=== PATIENT | female | born 1950 | race Caucasian/White ===

== ENCOUNTER 2024-02-17 13:52 | Inpatient (IN) | payer OTHER, SELFPAY ==
[2024-02-16] VITALS (8 sets, daily range): BP systolic 150–225; BP diastolic 81–116; BMI 19.8
--- NOTE | 2024-02-16 17:44 | ED.GENMED ---
History of Present Illness
General
Chief Complaint: Numbness
Source: patient and other (Friend)
Exam Limitations: none
Time Seen by Provider: 02/16/24 17:32
Nursing documentation reviewed up to this point in time: agreed with
Travel History
Have you had any contact with someone who has COVID-19?: No
Do you have any symptoms of coronavirus? Fever > 100 degrees, chills, cough, shortness of breath, sore throat, loss of taste or smell, muscle aches, or headache?: No
History of Present Illness
History of Present Illness:
73-year-old female presents emerged part complaining of episodes of numbness in her left arm and left face. She denies any chest pain.
Past History
Past History
ED Past Medical History: GERD, HTN and Hypercholesterolemia
ED Past Surgical History: and Gynecological (d and c)
Social History
Tobacco: Non-smoker
Alcohol: None
Drug: None
Review of Systems
Review of Systems
Allergies reviewed?: Yes
All Other Systems: Not applicable
Constitutional: Reports no symptoms
EENT: Reports no symptoms
Respiratory: Reports no symptoms
Cardiac: Reports no symptoms
ABD/GI: Reports no symptoms
: Reports no symptoms
Musculoskeletal: Reports no symptoms
Skin: Reports no symptoms
Neurological: Reports numbness; Denies weakness
Endocrine: Reports no symptoms
Hematologic/Lymphatic: Reports no symptoms
Psychiatric: Reports no symptoms
Phy Exam
Physical Exam
Physical Exam:
Physical Exam
General: no apparent distress, not acutely ill
Neck: supple. no meningeal signs. normal posterior pharynx
Heart: s1/s2 regular rate and rhythm, no murmur. equal radial
pulses.
HEENT: Pupils equal round reactive to light, EOMI
Lungs: no acute respiratory distress. clear bilaterally
Abdomen: normal bowel sounds. not tender. no CVAT
Neuro: alert and oriented. no focal neurological deficits cranial nerves II through XII intact
Skin: no rash
Psychiatric: well kept. interactive and cooperative
Extremities: no edema. no calf tenderness. negative homans. good distal pulses
Course
Orders/Labs/Results
Orders:
Orders
02/16/24 17:19
Electrocardiogram (*1) Urgent
Reason for Study: Hypertension, Benign
EKG- Treatment ONCE
02/16/24 17:42
CT Head W/o Iv Contrast Urgent
Comment:
Reason For Exam: left facial and arm numbness, hypertension
Cardiac Monitoring- Treatment ONCE
IV Insert/Care/Rem.- Treatment PRN
Pulse Ox/cont/shift [RESP] Stat
Quantity: 1
02/16/24 17:58
Complete Blood Count/With Diff Urgent
Comprehensive Metabolic Panel Urgent
PTT Urgent
Prothrombin Time Urgent
Troponin I Urgent
02/16/24 19:56
HydrALAZINE [Apresoline] 10 mg IV NOW STA
02/16/24 20:00
Aspirin 325 mg PO NOW STA
Abnormal Lab Results
02/16/24
17:58
MCH 32.1 H pg
(27.0-31.0)
Absolute Monos (auto) 0.8 H 10^3/uL
(0.1-0.6)
Neutrophils % 42.1 L %
(42.2-75.2)
Monocytes % 11.2 H %
(1.7-9.3)
Sodium 129 L mmol/L
(135-145)
Chloride 93 L mmol/L
(98-107)
Glucose 107 H mg/dl
(70-99)
Calcium 10.4 H mg/dl
(8.4-10.2)
02/16/24 17:58
02/16/24 17:58
Vital Signs
Initial and Last Documented VS:
Initial Vital Signs
Temp Pulse Resp BP Pulse Ox
98.1 F 73 16 225/113 99
02/16/24 17:11 02/16/24 17:11 02/16/24 17:11 02/16/24 17:11 02/16/24 17:11
Last Documented Vital Signs
Temp Pulse Resp BP Pulse Ox
98.1 F 66 14 194/84 97
02/16/24 17:11 02/16/24 18:00 02/16/24 18:00 02/16/24 18:00 02/16/24 18:00
MDM/Problems Addressed
Differential Diagnosis Includes:
Intracranial hemorrhage, CVA, TIA, hypertensive urgency
MDM/Problems Addressed:
73-year-old female with hypertensive urgency, TIA. IV hydralazine ordered. Admit to hospitalist.
Chronic conditions affecting care: HTN
Acute Exacerbation and/or Progression of Chronic Illness: HTN
*Radiology
Radiology exam reviewed: radiology read reviewed (CT head no acute finding)
*Pulse Oximetry
Patient hypoxic: no
*EKG
Interpreted by ED Provider?: Yes
EKG Intrepretation Date: 02/16/24
EKG Intrepretation Time: 17:22
Interpretation: normal
Comparison EKG: no comparison EKG present
Heart Rate: 71
Rate: normal
Rhythm: sinus
[place]: normal axis
Interval: normal interval
QRS Pattern: normal QRS
Ischemia: no ischemia
*Skidder Lever Operator Interpretation
Rate: normal
Interpretation: normal
Heart Rate: 75
Rhythm: sinus
*Critical Care Note
Total Time (30-74mins, 75-104mins- exclusive of procedures): 30
comment:
Critical care statement: A total of 30 minutes of critical care time was provided for this patient. This includes management of unstable vital signs, evaluation of the patient at bedside, reviewing the patient's pertinent medical records, discussion
with consultants, review of old EKGs and review of pertinent medical records. This time with separate from time utilized to perform the aforementioned documented procedures
Data Reviewed
Review of Other/Old Records Reveals: Labs
Prescriptions/Medications Considered But Not Given:
TNK not indicated
Patient Management
Social determinants of health affecting care: Living situation
Discussion with other providers: Hospitalist
Escalation/DeEscalation of care consider admission/obs:
Admit indicated
ED Attending Note
-
Portions of this chart may have been created with voice recognition software.� Occasional wrong word or��sound alike� substitutions may have occurred due to the inherent limitations of voice recognition software.
Discharge Plan
Departure
Patient Disposition: Admit
Date of Disposition: 02/16/24
Time of Disposition: 19:57
Admit to: IMU
Presentation/result/management discussed w/ accepting MD/DO: Hospitalist
Patient with high blood pressure during this ER visit?: Yes
Condition: Good
Discharge Problem:
TIA (transient ischemic attack), Hypertensive urgency
Prescriptions:
No Action
losartan 50 mg Tablet
100 mg PO DAILY
Patient Comments:
02/16/2024, per pt., as of Wednesday (02/12/2024) dose was changed to two tablets daily.
timolol 0.5 % Drops
1 drp BOTH EYES DAILY
omeprazole 20 mg Capsule,Delayed Release(Dr/Ec)
20 mg PO DAILY
calcium carbonate-vitamin D3 [Calcium 600 with Vitamin D3] 600 mg-12.5 mcg (500 unit) Capsule
2 cap PO DAILY PRN (Reason: supplement)
Otezla 30 mg Tablet
30 mg PO BID
Referrals:
Soledad Davis CRNP [Family Provider] -
Interventions
Interventions:
*Risk Screen - Suicide Last Done: 02/16/24 17:42
*General Assessment Last Done: 02/16/24 17:42
*Neglect/Abuse Screening Last Done: 02/16/24 17:42
*ED COVID-19 Vaccine History Last Done: 02/16/24 17:11
ED- Neurological Assessment Last Done: 02/16/24 17:42
Discharge Date and Time
Print Language: IRANIAN
[2024-02-16 18:13] LABS: % Basophils 0.8 % (0-2); % Eosinophils 2.7 % (0-6); % Immature Granulocytes 0.3 % (0-0.5); % Lymphocytes 42.9 % (20.5-51.1); % Monocytes 11.2 % (1.7-9.3); % Neutrophils 42.1 % (42.2-75.2); Absolute Basophils 0.1 10^3/uL (0-0.2); Absolute Eosinophils 0.2 10^3/uL (0-0.7); Absolute Lymphocytes 3.2 10^3/uL (1.2-3.4); Absolute Monocytes 0.8 10^3/uL (0.1-0.6); Absolute Neutrophils 3.2 10^3/uL (1.4-6.5); Hematocrit 41.4 % (37.0-47.0); Mean Corp Hgb Conc. 36.2 g/dL (33.0-37.0); Mean Corpuscular Hgb 32.1 pg (27.0-31.0); Mean Corpuscular Volume 88.7 fL (81.0-99.0); Mean Platelet Volume 8.9 fL (7.4-10.4); Nucleated Red Blood Cells % 0 %; Platelet Count 321 10^3/uL (130-400); Red Blood Cell Count 4.67 10^6/uL (4.20-5.40); Red Cell Dist. Width 11.6 % (11.5-14.5); White Blood Cell Count 7.5 10^3/uL (4.8-10.8)
[2024-02-16 18:23] LABS: INR 0.96; PT 12.8 Sec (11.4-14.6)
[2024-02-16 18:24] LABS: ALT (SGPT) 20 U/L (0-35); APTT 28.9 Sec (23.4-35.0); AST (SGOT) 28 U/L (14-36); Albumin 4.7 g/dl (3.5-5.0); Alkaline Phosphatase 125 U/L (38-126); Blood Urea Nitrogen 13 mg/dl (7-17); Calcium 10.4 mg/dl (8.4-10.2); Carbon Dioxide 25 mmol/L (22-30); Chloride 93 mmol/L (98-107); Glucose 107 mg/dl (70-99); Potassium 4.3 mmol/L (3.5-5.1); Sodium 129 mmol/L (135-145); Total Bilirubin 0.9 mg/dl (0.2-1.3); Total Protein 7.9 g/dl (6.3-8.2); eGFR > 60.00
[2024-02-16 18:36] LABS: Troponin I < 0.012 ng/ml
--- NOTE | 2024-02-16 20:56 | HPS.HSE ---
Family Physician
-
Family Physician: CARIN Michelle
Chief Complaint
-
Left face and arm numbness
History of Present Illness
Patient is a 73 y/o female past medical history of hypertension, and psoriasis who presents with numbness of left face and arm. Patient reports she expereiced two episdoe on Wednesday, one episode yesterday, and an episode this morning. She reports
symptoms last just a few minutes and then resolve. She reports her losartan dose was increased 5 days ago as her blood pressure overall has been running higher. She denies any symptoms at the present time. She denies any headache or vision
changes associated with the event. She denies prior history of TIA/CVA.
Medical History
Past Medical History
Past Medical History: Reports Other
Additional Past Medical History:
Hypertension
Hyperlipidemia
Psoriasis
GERD
Past Surgical History: Reports Other
Additional Past Surgical History:
Sinus Surgery
Social History
Tobacco: Former Smoker (Quit over 50 years)
Alcohol: Occasional (1-2 drinks about 5 days a week)
Family History
Family History: Other (Father: Early onset Alzheimer's; Brother: CVA in his 40s, A-fib)
Allergies / Home Medications
Allergies reflects when Allergies were last updated in [employer].
Home Medications with original date entered in [employer]
Allergy/Medication List:
Allergies
Allergy/AdvReac Type Severity Reaction Status Date / Time
amlodipine Allergy Mild Rash Verified 02/16/24 17:10
ampicillin Allergy Mild Rash Verified 02/16/24 17:10
hydrocodone Allergy Mild Rash Verified 02/16/24 17:10
tetracycline Allergy Mild Rash Verified 02/16/24 17:10
Home Medications
apremilast 30 mg tablet (Otezla) 30 mg PO BID 02/16/24
calcium carbonate 600 mg-vitamin D3 12.5 mcg (500 unit) capsule (Calcium 600 with Vitamin D3) 2 cap PO DAILY PRN supplement 02/16/24
losartan 50 mg tablet 100 mg PO DAILY 02/16/24
omeprazole 20 mg capsule,delayed release 20 mg PO DAILY 02/16/24
timolol 0.5 % eye drops 1 drp BOTH EYES DAILY 02/16/24
Review of Systems
-
A 12 point ROS was completed and negative except as noted: Yes
Constitutional: Denies Fever or Chills
Respiratory: Denies Cough or Trouble Breathing
Cardiac: Denies Chest Pain or Palpitations
Abdomen/GI: Denies Abdominal Pain, Nausea, Vomiting or Diarrhea
Neurological: Reports See HPI
Physical Exam
Vital Signs
Vital Signs
Temp Pulse Resp BP Pulse Ox
98.1 F 66 14 194/84 97
02/16/24 17:11 02/16/24 18:00 02/16/24 18:00 02/16/24 18:00 02/16/24 18:00
Physical Exam
General: Comfortable and Conversant
HEENT: Anicteric and Moist mucous membranes
Respiratory: Clear and Non Labored Respirations
Cardiac: S1/S2 and Regular Rhythm
GI: Soft and Non Tender
Rectal: Deferred by Provider
Musculoskeletal: No Clubbing, No Cyanosis and No Edema
Skin: Warm and Dry
Neuro: Awake, Alert, Oriented and Nonfocal/grossly intact
Psych: Calm
Laboratory Results
-
02/16/24 17:58
02/16/24 17:58
Laboratory Results
PT 12.8 Sec (11.4-14.6) 02/16/24 17:58
INR 0.96 02/16/24 17:58
APTT 28.9 Sec (23.4-35.0) 02/16/24 17:58
Total Bilirubin 0.9 mg/dl (0.2-1.3) 02/16/24 17:58
AST 28 U/L (14-36) 02/16/24 17:58
ALT 20 U/L (0-35) 02/16/24 17:58
Alkaline Phosphatase 125 U/L (38-126) 02/16/24 17:58
Troponin I < 0.012 ng/ml 02/16/24 17:58
Data Reviewed
-
CT Scan: Report Reviewed by me
Lab Data: Labs Reviewed by me
Impression/Plan
-
Transient Left Face and Arm Numbness, possibly related to elevated blood pressure vs TIA/CVA
-Consult Neurology
-Check Brain MRI
-Continue low dose aspirin
Uncontrolled Hypertension - BP is quite variable
-Continue losartan 100mg Daily as this was recently increased
-Add hydralazine prn
Hyponatremia
-Check urine sodium and urine osmo
-Check TSH and Cortisol
-Continue fluid restriction
Psoriasis
-Patient maintained on Otezla as outpatient
GERD
-Continue Protonix
DVT proph: SCDs
Code Status: Full Code
[2024-02-16] MEDS: ASPIRIN 325 MG PO (21:07)
[2024-02-16 21:36] LABS: Osmolality Serum 276 mOsm/kg (275-300)
[2024-02-16 21:51] LABS: TSH Reflex To Free T4 2.01 uIU/ml (0.47-4.68)
--- NOTE | 2024-02-16 23:14 | W.PN.UPDATE ---
Update Note
Progress Note Update
Patent seen and examined independently. Agree with findings and plan as set forth in the H&P as documented by Eli Lisa PA-C.
Patient is a 73y F with PMH significant for HTN, dyslipidemia and psoriasis who presents to ED c.o multiple episodes of brief, intermittent L sided numbness and tingling. Patient reports about 4 episodes over the past 3 days. Symptoms include
numbness and tingling in the L hand and arm, L face and a strange sensation with swallowing. Each episode lasted minutes before resolving spontaneously. Most episodes occurred in the AM. Each episode consisted of identical symptoms.
Patient denies any prior h/o CVA / TIA. She has chronically labile BP that has been difficult to control. She notes that her losartan dose was increased about one week ago.
Ass:
Transient L Sided Paresthesias
Labile / Uncontrolled Hypertension
Hyponatremia
Dyslipidemia
Psoriasis
Plan:
Observe overnight for further evaluation and treatment.
Monitor for any new / recurrent symptoms.
Allow permissive hypertension for now.
Adjust meds during stay for better control / goal of normotension at discharge.
Continue low dose ASA.
Neuro evaluation.
MRI / MRA brain in the AM.
Fluid restriction. Check urine lytes.
[2024-02-17] VITALS (12 sets, daily range): BP systolic 129–187; BP diastolic 67–99; BMI 20.6
--- NOTE | 2024-02-17 01:38 | EDRN ---
the pt is requesting her home prescribed meds: Omeprazole, Otezla, and Timolol eye drops be ordered so she can get them starting later this morning. the house provider CARIN Coelho was notified of the pts request via [employer].
--- NOTE | 2024-02-17 03:25 | PTCARENOTE ---
@0315,Received pt from ED,via wheel chair with tele monitor on.Gait stable and oriented x3.Pt denies pain.
[2024-02-17 05:46] LABS: Urine Albumin Negative (Neg - Trace); Urine Bilirubin Negative (Negative); Urine Character Clear (Clear); Urine Color Yellow; Urine Glucose Negative (Negative); Urine Ketone 1+ (Negative); Urine Leukocyte Negative (Negative); Urine Nitrite Negative (Negative); Urine Occult Blood Negative (Negative); Urine Urobilinogen Negative (Neg - 1+); Urine pH 6.5 (5.0-9.0)
[2024-02-17 05:59] LABS: Urine Sodium 89 mmol/L (30-90)
[2024-02-17 06:04] LABS: Osmolality Urine 338 mOsm/kg (300-900)
[2024-02-17 06:22] LABS: Hematocrit 39.6 % (37.0-47.0); Mean Corp Hgb Conc. 35.4 g/dL (33.0-37.0); Mean Corpuscular Hgb 31.7 pg (27.0-31.0); Mean Corpuscular Volume 89.8 fL (81.0-99.0); Mean Platelet Volume 9.2 fL (7.4-10.4); Platelet Count 283 10^3/uL (130-400); Red Blood Cell Count 4.41 10^6/uL (4.20-5.40); Red Cell Dist. Width 11.4 % (11.5-14.5); White Blood Cell Count 6.2 10^3/uL (4.8-10.8)
[2024-02-17 06:32] LABS: Blood Urea Nitrogen 12 mg/dl (7-17); Calcium 9.8 mg/dl (8.4-10.2); Carbon Dioxide 25 mmol/L (22-30); Chloride 92 mmol/L (98-107); Estimated Creatinine Clearance 70 ml/min; Glucose 146 mg/dl (70-99); HDL Cholesterol 88 mg/dl; LDL Cholesterol, Calculated 144 mg/dl; Sodium 127 mmol/L (135-145); Total Cholesterol 252 mg/dl (50-199); Triglyceride 102 mg/dl (10-149); Very Low Density Lipoprotein 20 mg/dl (0-30); eGFR > 60.00
[2024-02-17 07:02] LABS: Cortisol, Random 10.1 ug/dl
--- NOTE | 2024-02-17 07:06 | CON.NEURO4 ---
Addendum entered and electronically signed by Jakob Waters MD 02/17/24 12:04:
While on DAPT therapy do not use Omeprazole and instead use Pantoprazole and Omeprazole known to reduce effectiveness of Clopidogrel due to effects on CYP metabolism and conversion of clopidogrel to its active metabolite/drug.
Original Note:
Consultation - Neurology 4
-
CONSULTING PHYSICIAN: Nita Waters
REFERRING PHYSICIAN: Hospitalist
DICTATED BY: Nita Waters
DATE/TIME OF REQUEST: 02/17/24
DATE/TIME OF CONSULTATION: 02/17/24
Reason for Consultation: TIA, facial and left arm sensory symptoms repeated episodes
History of Present Illness:
Patient is a 73 year old woman with history of hypertension presenting to hospital with 3 episodes of left face and left arm abnormal paresthesia happening approximately 4 times since first starting on Wednesday. No recent head or neck trauma, no
unusual head or neck pain. She was in her normal state of health Wednesday and in the morning had a couple of minutes of left face and arm paresthesia lasting around 3 minutes, resolved and then happened in a similar manner in the afternoon and
resolved again. Similar episodes happened on Wednesday and Wednesday of this week, still resolving. She had not had any episodes like this previous to Wednesday. No symptoms of unilateral vision change or blindness, dysarthria, speech difficulty,
unilateral weakness, vertigo, or walking difficulties. Her blood pressure was elevated in the ER to the low 200's systolic. Patient reports being on medication for blood pressure for about 5 years. She says blood pressure is a bit labile,
sometimes normal and then randomly high the next day. She had recent increase in Losartan to 100 mg daily last Wednesday by her PCP. No issues with stroke, TIA, or heart issues ever in her life. Exercises regularly. Doesn't take any antiplatelet at
baseline. Had had some gastric ulcers and need for esophageal dilation with EGD a few years back, no instances of any GI bleeding in the past 5 years. Takes Omeprazole as daily medication. Noted to have hyponatremia of 127. No recent vomiting,
does have some frequent loose stools. PO intake has been good.
Past Medical History: Hypertension, diverticulosis, previous gastric ulcer, psoriasis
Surgical History: 2 C section, one D & C, EGD
Family History: Brother with stroke in his mid 40's and atrial fibrillation, father with an early onset dementia in his 50's, history of late onset dementia in her mother and multiple siblings on her mother's side
Social History: Retired oncology nurse, she was raised in the area and for a long time lived and worked in [place], no tobacco, social rare alcohol, no recreational drugs
Review of Symptoms:
Patient denies any fever, headache, chest pain, shortness of breath, GI or symptoms.
Physical Exam:
Well appearing middle aged woman appears younger than her stated age, no head or neck trauma, eyes clear, orpharynx clear, neck full range of motion no masses, heart rate regular, breathing unlabored, abdomen soft non tender, no lower extremity edema
Neurologic Examination:
The patient is awake, alert and oriented x 3. Sheis able to follow commands and answer questions appropriately. There is no aphasia or dysarthria. On cranial nerve assessment, pupils are 3 mm bilateral, round and reactive to light and
accommodation. Visual vang are full. Extraocular movements are intact. Facial sensations are intact and bilaterally symmetrical, there is no facial asymmetry. Hearing is intact bilaterally to normal conversation volume. Tongue palate and uvula
are midline. Sternocleidomastoid strengths are full bilaterally. Motor strengths are 5/5 bilateral upper and lower extremities on medical research [place] scale. There is no drift or involuntary movement noted. Deep tendon reflexes are 2+ bilateral
upper and lower extremities and Babinski is absent bilaterally. Sensations of pain, touch, temperature and vibration are intact and bilaterally symmetrical. There was no extinction noted on double simultaneous stimulation. Coordination is intact by
finger to nose bilaterally.
Neuro Imaging: CT head non contrast no abnormalities noted
Impressions
1. High suspicion for TIA or minor stroke with 3-4 episodes of left face and arm paresthesia. History of hypertension. Less likely this is a cervical spine issue which can rarely produce sensory symptoms on the face.
2. Essential hypertension
3. Psoriasis
Patient has the following risk factors for their symptoms: Hypertension, family history of stroke
Recommendations:
1. Add clopidogrel 300 mg once now to aspirin. Plan for DAPT tentatively for 3 weeks total
2. Pursue goal normotension with resolved neurologic symptoms.
3. Patient had unremarkable TTE last year, not going to recommend a repeated study. Monitor on cardiac telemetry
4. Check MRI of the brain and MRA of the head without contrast, MRA of the neck with contrast
5. NIH and neurologic checks
6. Stroke educational materials
7. Would start Atorvastatin 40 mg daily given LDL 144
8. Workup of hyponatremia sodium 127, follow sodium
9. Goal normoglycemia, pending HbA1c
Will follow
Discussed patient care with: Patient
[2024-02-17] MEDS: LOW STRENGTH ASPIRIN 81 MG PO (07:49)
[2024-02-17] MEDS: COZAAR 100 MG PO (07:49)
[2024-02-17 08:44] LABS: Glycohemoglobin (HgbA1c) 6.1 % (4.0-5.6)
[2024-02-17] MEDS: PLAVIX 300 MG PO (08:45)
--- NOTE | 2024-02-17 09:57 | W.PN.HOSP.TC ---
Today's Communication/Plan
-
see outlined plan
Assessment / Plan
Assessment / Plan
Assessment:
TIA
- 3-4 episodes recently of L arm/face paresthesia
- check MRI brain, MRA Head/neck
- follow NIH scores
- ASA/Plavix x 3 weeks
- BP goal normotension
- LDL 144 - start Statin
- A1c 6.1% - outpatient PCP f/u and encourage weight loss
- recent normal Echo 1 year ago, no indication for repeat
Uncontrolled Essential HTN
- continue Losartan 100mg daily - assess repeat BP around noon
- may need low dose 2nd agent, favor BB. No diuretics due to hyponatremia
Hyponatremia, euvolemic
- TSH/Cortisol ok
- continue OFR 1200 cc
Psoriasis
- patient maintained on Otezla as outpatient
GERD
- continue Protonix
DVT ppx: SCDs
Code Status: Full Code
Anticipated Discharge: Within 24 hours
Subjective/Interval History
-
Date of Service: February 17, 2024
no LUE symptoms today
Objective Data
-
Labs:
Laboratory Results
02/17/24
05:47
WBC 6.2
Hgb 14.0
Hct 39.6
Plt Count 283
Sodium 127 L
Potassium 4.0
Chloride 92 L
Carbon Dioxide 25
BUN 12
Creatinine 0.6
Glucose 146 H
Calcium 9.8
Vital Signs:
Vital Signs
Temp Pulse Resp BP Pulse Ox
97.6 F 80 18 186/99 99
02/17/24 07:00 02/17/24 07:49 02/17/24 07:00 02/17/24 07:49 02/17/24 07:00
I&O
0302/17/24 02/18/24
06:59 06:59 06:59
Intake Total 480 / 480
Output Total 200 / 200
Balance 280 / 280
Physical Exam
-
General: No Apparent Distress
HEENT: Normocephalic and Atraumatic
Respiratory: Negative Wheezes or Rales
Cardiac: Regular Rhythm and S1/S2
GI: Soft and Nontender
Genito-urinary: No Costovertebral Tender
Musculoskeletal: No Edema
Neuro: AO x 3
Hematologic / Lymphatic: No Lymphadenopathy
Psych: Calm
Data Reviewed
-
Total Time Spent with Patient (in minutes): 41
Labs: Labs Reviewed by me
[2024-02-17] MEDS: LASIX 20 MG PO (12:07)
--- NOTE | 2024-02-17 12:23 | PTOTSP ---
Orders received. Chart reviewed. Presenting to hospital with 3 episodes of left face and left arm abnormal paresthesia happening approximately 4 times since first starting on Wednesday. Pt reports all symptoms have resolved. MRI brain is negative for
acute infarct. Pt reports she is independent with her basic self care and is ambulating to/from bathroom independently without AD. Nursing is in agreement. No skilled OT indicated at this time. Please reconsult if medical status changes and OT
consult is warranted.
--- NOTE | 2024-02-17 12:46 | CM ---
Spoke with pt at bedside
Pt lives alone in 1 story home with basement
Independent, drives, retired
Denies DME in home
Denies past SNF/HH
Has ride at d/c
PCP - Mari Davis PRACTICAL NURSE CLINICAL COORDINATOR
Pharm - [facility]
Pending PT/OT recs
Plan - anticipate home no needs
[2024-02-18 04:00] VITALS: BP 154/90
[2024-02-18 05:50] VITALS: BMI 20.2
[2024-02-18 06:44] LABS: Blood Urea Nitrogen 17 mg/dl (7-17); Calcium 9.8 mg/dl (8.4-10.2); Carbon Dioxide 29 mmol/L (22-30); Chloride 93 mmol/L (98-107); Estimated Creatinine Clearance 52 ml/min; Glucose 100 mg/dl (70-99); Sodium 130 mmol/L (135-145); eGFR > 60.00
[2024-02-18 07:33] VITALS: BP 121/77
--- NOTE | 2024-02-18 07:41 | W.PN.NEURO.1 ---
Today's Communication / Plan
-
-Not feeling patient would need inpatient C spine MRI given sensory symptoms only, no weakness, can consider as outpatient but not going to change therapies
-Goal normotension, NIH and neurologic checks
-DAPT therapy 21 days then aspirin afterwards, use Pantoprazole while on Clopidogrel due to interaction, can go back to omeprazole after stopping clopidogrel
-Was not able to tolerate crestor as outpatient, declines using Atorvastatin, as outpatient discuss Zetia, she had asked about Bempedoic acid but I am not familiar with the medication would not pursue at this time
-No barriers to discharge from my standpoint, defer to hospitalist for sodium management
-Neurology follow up in 4-6 weeks
Will sign off call with questions and concerns
Neuro Assessment/Plan
Assessment
73 year old woman presenting with 3-4 episodes of left face and arm paresthesia, 2 on Wednesday, 1 on Wednesday, 1 on Wednesday
One episode of similar symptoms yesterday, sensory only lasting a few seconds
Elevated BP's on admission to low 200's systolic, history of hypertension
MRI brain with mild small vessel microvascular disease, no acute or chronic infarcts, MRA head and neck no significant abnormaliteis
Etiology: Suspect TIA versus mild C spine or radiculopathy symptoms given repetitive nature and similar sensory symptoms, less likely these are neurologic symptoms due to hypertension
LDL elevated at 147, did not tolerate Crestor as outpatient
TTE in 2022 unremarkable, negative telemetry here
Family history of dementia early in her father, mother and multiple aunts/uncles on mothers side had dementia
Patient's brain MRI with no findings of microhemorrhage no findings of amyloid angiopathy no significant unusual brain atrophy
Subjective/Objective
Subjective Data
Date of Service: February 18, 2024
Yesterday had a few seconds of left face and arm paresthesia similar to previous episodes, no headache or neck pain, no new symptoms otherwise, discussed thoughts on etiology, sodium, follow up and medications
Objective Data
Vital Signs
Temp Pulse Resp BP Pulse Ox
97.8 F 90 16 121/77 96
02/18/24 07:33 02/18/24 07:33 02/18/24 07:33 02/18/24 07:33 02/18/24 07:33
Lab Results
02/17/24 05:47
02/18/24 05:44
PT 12.8 Sec (11.4-14.6) 02/16/24 17:58
INR 0.96 02/16/24 17:58
APTT 28.9 Sec (23.4-35.0) 02/16/24 17:58
Sodium 130 mmol/L (135-145) L 02/18/24 05:44
Potassium 4.0 mmol/L (3.5-5.1) 02/18/24 05:44
BUN 17 mg/dl (7-17) 02/18/24 05:44
Glucose 100 mg/dl (70-99) H 02/18/24 05:44
Calcium 9.8 mg/dl (8.4-10.2) 02/18/24 05:44
LDL Cholesterol, Calc 144 mg/dl 02/17/24 05:47
Patient Allergies
amlodipine Allergy (Mild, Verified 02/16/24 17:10)
Rash
ampicillin Allergy (Mild, Verified 02/16/24 17:10)
Rash
hydrocodone Allergy (Mild, Verified 02/16/24 17:10)
Rash
tetracycline Allergy (Mild, Verified 02/16/24 17:10)
Rash
Review of Systems
-
History Source: Patient
All other systems: Reviewed and negative
Constitutional: No Symptoms
EENT: No Symptoms Reported
Respiratory: No Symptoms
Cardiac: No Symptoms
Abdomen/GI: No Symptoms
Genitourinary: No Symptoms
Musculoskeletal: No Symptoms
Skin: No Symptoms
Neuro: Numbness; Negative Weakness
Endocrine: No Symptoms
Hematologic / Lymphatic: No Symptoms
Allergy / Immunology: No Symptoms
Physical Exam
-
General: No Apparent Distress
Eyes: No Ptosis
HEENT: Normocephalic
Neck: No Bruits Bilaterally
Respiratory: Clear to Auscultation
Cardiac: Regular Rhythm
GI: Normal Bowel Sounds
Skin: Unremarkable
Extremities: No Clubbing
Psych: Unremarkable
Extended Neurological Exam
Mood & Affect: Mood Unremarkable and Affect Unremarkable
Attention Span & Concentration: Awake, Alert and Interactive
Memory: Unremarkable
Tremor: Hand Tremor Absent
Involuntary Movement: None
Speech: Quality Unremarkable and Quantity Unremarkable; Negative Expressive Aphasia, Receptive Aphasia or Dysarthric
Cranial Nerve II: Left Eye: Visual Wright Grossly Intact
Cranial Nerve II: Right Eye: Visual Wright Grossly Intact
Cranial Nerves III, IV, : Extraocular Movement: Extraocular Movement Full in all Directions
Cranial Nerve VII: Facial Symmetry: Normal Facial Symmetry
Pronator Drift: No Drift in Upper Extremities
Data Reviewed
-
CT Head: Report Reviewed and Image Reviewed
MRI Head: Report Reviewed and Image Reviewed
MRA Head: Report Reviewed
MRA Neck: Report Reviewed and Image Reviewed
Echocardiogram: Report Reviewed
Labs: Report Reviewed
Lipid Profile: Report Reviewed
[2024-02-18] MEDS: PLAVIX 75 MG PO (08:18)
[2024-02-18] MEDS: LOW STRENGTH ASPIRIN 81 MG PO (08:18)
[2024-02-18] MEDS: COZAAR 100 MG PO (08:18)
--- NOTE | 2024-02-18 11:34 | W.PN.HOSP.TC ---
Today's Communication/Plan
-
dc to home
Assessment / Plan
Assessment / Plan
Assessment:
TIA
- 3-4 episodes recently of L arm/face paresthesia
- MRI brain, MRA Head/neck without abnormalities
- ASA/Plavix x 3 weeks; then ASA alone
- BP goal normotension
- LDL 144 - intolerant of statin outpatient, consider Zetia - f/u PCP
- A1c 6.1% - outpatient PCP f/u and encourage weight loss
- recent normal Echo 1 year ago, no indication for repeat
Uncontrolled Essential HTN
- continue Losartan 100mg daily - assess repeat BP around noon
Hyponatremia, euvolemic
- TSH/Cortisol ok
- s/p Lasix with improvement, may be related to BP fluctuations
Psoriasis
- patient maintained on Otezla as outpatient
GERD
- continue Protonix
DVT ppx: SCDs
Code Status: Full Code
More than 30 minutes spent in discharge including
Final examination of the patient
Summarizing hospital stay
Instructions for continuing care to all relevant caregivers
Preparation of discharge records, prescriptions, and referral forms
Total time spent (in minutes): 42
Anticipated Discharge: Today
Subjective/Interval History
-
Date of Service: February 18, 2024
feels well, Na 130, BP more controlled
Objective Data
-
Labs:
Laboratory Results
02/18/24
05:44
Sodium 130 L
Potassium 4.0
Chloride 93 L
Carbon Dioxide 29
BUN 17
Creatinine 0.8
Glucose 100 H
Calcium 9.8
Vital Signs:
Vital Signs
Temp Pulse Resp BP Pulse Ox
97.8 F 90 16 121/77 96
02/18/24 07:33 02/18/24 07:33 02/18/24 07:33 02/18/24 07:33 02/18/24 07:33
I&O
02/17/24 02/18/24 02/19/24
06:59 06:59 06:59
Intake Total 480 / 480 780 / 780
Output Total 200 / 200 1600 / 1600
Balance 280 / 280 -820 / -820
Physical Exam
-
General: No Apparent Distress
HEENT: Normocephalic and Atraumatic
Respiratory: Negative Wheezes or Rales
Cardiac: Regular Rhythm and S1/S2
GI: Soft and Nontender
Genito-urinary: No Costovertebral Tender
Musculoskeletal: No Edema
Neuro: AO x 3
Hematologic / Lymphatic: No Lymphadenopathy
Psych: Calm
Data Reviewed
-
Total Time Spent with Patient (in minutes): 41
Labs: Labs Reviewed by me
--- NOTE | 2024-02-18 12:18 | CM ---
Plan: discharge to home today without services; friend will transport home
Signed IMM on the chart
[2024-02-18 12:26] VITALS: BP 145/80
--- NOTE | 2024-02-18 16:25 | W.DS.TRANS ---
DC Summary - [employer]
-
Discharge Instructions:
Discharge Diagnosis/Procedures TIA, elevated BP, low Na
Diet Regular
Additional Diets low cholesterol and be attentive to salt, lower
salt as possible
Activity As tolerated
Bathing Restrictions None
Instructions:
Stand-Alone Forms:
Changes to Home Medications: No
Discharge Medications:
DC Medications w/original date entered in [employer]
apremilast 30 mg tablet (Otezla) 30 mg PO BID psoriasis 02/16/24
calcium carbonate 600 mg-vitamin D3 12.5 mcg (500 unit) capsule (Calcium 600 with Vitamin D3) 2 cap PO DAILY PRN supplement 02/16/24
losartan 50 mg tablet 100 mg PO DAILY Blood Pressure 02/16/24
omeprazole 20 mg capsule,delayed release 20 mg PO DAILY Gastrointestinal Issue 02/16/24
timolol 0.5 % eye drops 1 drp BOTH EYES DAILY Eye Condition 02/16/24
aspirin 81 mg chewable tablet (Children's Aspirin) 81 mg PO DAILY #100 tabs 02/18/24
clopidogrel 75 mg tablet 75 mg PO DAILY #19 tabs 02/18/24
pantoprazole 40 mg tablet,delayed release (Protonix) 40 mg PO DAILY #30 tabs 02/18/24
Home Medication Changes
Pending Results: No
Total time spent discharging patient (in min): 42
== END 2024-02-18 12:59 | disposition home or self-care (01) | DRG 69 ==
LOC: 3 WEST ACU 13:52
PROVIDERS: Physician Assistant Medical; ADMITTING PHYSICIAN Hospitalist; ATTENDING PHYSICIAN Internal Medicine; EMERGENCY PHYSICIAN Emergency Medicine; FAMILY PHYSICIAN Nurse Practitioner; OTHER PHYSICIAN Student in an Organized Health Care Education/Training Program
DX: G45.9 Transient cerebral ischemic attack, unspecified (principal); E87.1 Hypo-osmolality and hyponatremia; R20.0 Anesthesia of skin; E78.00 Pure hypercholesterolemia, unspecified; I10 Essential (primary) hypertension; K21.9 Gastro-esophageal reflux disease without esophagitis; I16.0 Hypertensive urgency; L40.9 Psoriasis, unspecified; Z87.891 Personal history of nicotine dependence; Z82.3 Family history of stroke; Z88.5 Allergy status to narcotic agent; Z88.0 Allergy status to penicillin; Z88.8 Allergy status to other drugs, medicaments and biological substances; Z81.8 Family history of other mental and behavioral disorders
CPT/HCPCS: 70450; 70544; 70548; 70551; 80048; 80053; 80061; 81003; 82533; 83036; 83735; 83930; 83935; 84300; 84443; 84484; 85025; 85027; 85610; 85730; 93005; 96374; 99291; A9585

== ENCOUNTER → 2024-03-22 11:12 | Outpatient (REF) | payer OTHER, SELFPAY ==
--- NOTE | 2024-03-22 13:16 | EEG.RPT ---
Electroencephalogram Report
Recording
Date of EE03/22/24
Type of EEG: Routine
Length of EEG recordin MINUTES
Done with Video Recording: Yes
Patient Status: Outpatient
Recording Conditions: Awake, Drowsy and Asleep
Hyperventilation Performed: Yes
Photic Stimulation Performed: Yes
Report
GREATER THAN 1 HOUR EEG INTERPRETATION:
Unremarkable EEG for age
CLINICAL CORRELATION:
A normal EEG does not rule out a diagnosis of epilepsy. If clinical suspicion for seizure persists, a prolonged recording may be warranted.
Clinical correlation is advised.
METHODS:
A 21 channel digitized electroencephalogram (EEG) was performed using the 10/20 international system of electrode placement and one-lead of ECG recorded. The [employer] quantitative EEG system was utilized.
ELECTROENCEPHALOGRAPHER IMPRESSION(S):
Quality of study
Good
Background
There was an unremarkable anterior-posterior voltage gradient of alpha frequency.
With eye opening the background activity changed to a low voltage mixture of frequencies.
There were no significant asymmetries of background activity noted.
Sleep
Drowsiness present
Stage 1 present
Stage 2 present
Hyperventilation
No activation
Photic Stimulation
No activation
ECG
Normal sinus rhythm
== END ==
LOC: RCS 11:12
PROVIDERS: ATTENDING PHYSICIAN Student in an Organized Health Care Education/Training Program; FAMILY PHYSICIAN Emergency Medicine
DX: R20.2 Paresthesia of skin (principal)
CPT/HCPCS: 95813

== ENCOUNTER → 2024-04-19 10:45 | Outpatient (REF) | payer OTHER, SELFPAY | LOC: MRI 3T 10:45 | PROVIDERS: ATTENDING PHYSICIAN Student in an Organized Health Care Education/Training Program; FAMILY PHYSICIAN Emergency Medicine | DX: R20.2 Paresthesia of skin (principal) | CPT/HCPCS: 72156; A9575 ==

== ENCOUNTER → 2024-05-05 10:32 | Outpatient (REF) | payer OTHER, SELFPAY | LOC: WDC 10:32 | PROVIDERS: ATTENDING PHYSICIAN Nurse Practitioner; FAMILY PHYSICIAN Emergency Medicine | DX: R92.333 Mammographic heterogeneous density, bilateral breasts (principal) | CPT/HCPCS: 76641 ==

== ENCOUNTER → 2024-09-05 09:22 | Outpatient (REF) | payer OTHER, SELFPAY | LOC: HWWDC 09:22 | PROVIDERS: ATTENDING PHYSICIAN Emergency Medicine | DX: Z12.31 Encounter for screening mammogram for malignant neoplasm of breast (principal) | CPT/HCPCS: 77063; 77067 ==

== ENCOUNTER → 2025-08-06 12:35 | Outpatient (REF) | payer OTHER, SELFPAY | LOC: WDC 12:35 | PROVIDERS: ATTENDING PHYSICIAN Emergency Medicine | DX: R92.333 Mammographic heterogeneous density, bilateral breasts (principal) | CPT/HCPCS: 76641 ==

== ENCOUNTER → 2025-08-27 08:40 | Outpatient (REF) | payer OTHER, SELFPAY | LOC: HWRAD 08:40 | PROVIDERS: ATTENDING PHYSICIAN Emergency Medicine | DX: M85.89 Other specified disorders of bone density and structure, multiple sites (principal) | CPT/HCPCS: 77080 ==

== ENCOUNTER → 2025-09-06 08:19 | Outpatient (REF) | payer OTHER, SELFPAY | LOC: HWWDC 08:19 | PROVIDERS: ATTENDING PHYSICIAN Emergency Medicine | DX: Z12.31 Encounter for screening mammogram for malignant neoplasm of breast (principal) | CPT/HCPCS: 77063; 77067 ==